=== PATIENT | male | born 1955 | race Caucasian/White ===

== ENCOUNTER 2016-09-18 11:42 | Emergency (ER) | payer OTHER ==
[~2016-09-18 11:42] MED LIST: HUMULIN 70100 UNIT/1 SQ; PEPCID AC20 MG PO; PRINIVIL10 MG PO; REGLAN10 MG PO
[2016-09-18 12:19] LABS: BASOPHIL 1.3 % (0-2); EOSINOPHIL 5.3 % (0-5); HCT 46.8 % (42.0-52.0); HGB 16.3 g/dl (13.2-18.0); LYMPHOCYTE 19.6 % (15-48); MCH 29.1 pg (25.0-31.0); MCHC 34.8 g/dL (32.0-36.0); MCV 83.4 fL (78.0-100.0); MONOCYTE 10.4 % (0-12); NEUTROPHIL 63.4 % (41-80); PLT 248 K/uL (150-400); RBC 5.61 M/uL (4.70-6.00); RDW 12.9 % (11.5-14.0); WBC 9.2 K/uL (4.0-10.5)
[2016-09-18 12:28] LABS: INR 0.92 (0.9-1.2); PTT 26.6 SECONDS (23.2-31.4)
[2016-09-18 12:35] LABS: ALBUMIN 4.2 g/dL (3.5-5.0); BILIRUBIN - TOTAL 0.3 mg/dL (0.1-1.0); GLOBULIN (CALCULATION) 2.8 g/dL (2.2-4.2); POTASSIUM 4.5 mmol/L (3.5-5.1)
[2016-09-18 13:43] LABS: BILIRUBIN NEGATIVE (NEGATIVE); BLOOD TRACE-LYSED Ery/uL (NEGATIVE); CLARITY CLEAR (CLEAR); COLOR STRAW (YELLOW); GLUCOSE (U) 3+ mg/dL (NORMAL); KETONE (U) 3+ (LARGE) mg/dL (NEGATIVE); LEUKOCYTES NEGATIVE Leu/uL (NEGATIVE); NITRITE NEGATIVE (NEGATIVE); PROTEIN TRACE (LOW) mg/dL (NEGATIVE); UROBILINOGEN 0.2 mg/dL (0.2-1.0)
== END 2016-09-18 14:25 | disposition other institution (70) ==
LOC: FER 11:42
PROVIDERS: Emergency Medicine
DX: G45.8 Other transient cerebral ischemic attacks and related syndromes (principal); R29.700 NIHSS score 0; E11.9 Type 2 diabetes mellitus without complications; F17.210 Nicotine dependence, cigarettes, uncomplicated
CPT/HCPCS: 36415; 70450; 71010; 80053; 81001; 82550; 85025; 85610; 85730; 93005

== ENCOUNTER 2016-09-25 15:09 | Inpatient (IN) | payer OTHER ==
--- NOTE | 2016-09-25 16:16 | NUR ---
ADMITTED FROM [facility]IA [facility] TO [facility] ROOM 5. TRANSFERRED WITH ASSIST OF 3 TO BED. ORIENTED TO ROOM AND CALL LIGHT. INSTRUCTED TO BE UP WITH ASSISTANCE ONLY. AT BEDSIDE. IID TO LEFT A/C INTACT
[2016-09-26 06:11] LABS: HCT 44.3 % (42.0-52.0); HGB 15.2 g/dl (13.2-18.0); MCH 29.2 pg (25.0-31.0); MCHC 34.3 g/dL (32.0-36.0); MPV 10.3 fL (6.0-9.5); RBC 5.21 M/uL (4.70-6.00); RDW 12.9 % (11.5-14.0)
[2016-09-26 06:32] LABS: POTASSIUM 4.3 mmol/L (3.5-5.1)
--- NOTE | 2016-09-28 16:53 | NUR ---
MET [facility] PT. SPOUSE FOR [facility]. PT. DID NOT WISH TO ATTEND. ADVISED THAT PT. WILL CONTINUE TO REMAIN IN THERAPY LONG INSURANCE APPROVES. PT. WILL NEED A MALENA-WALKER AND WANTS OUTPT. THERAPY.
--- NOTE | 2016-10-10 05:56 | NUR ---
5 AM PT CALLED OUT TO HAVE BLOOD SUGAR CHECKED STATES HE IS HAVING STROBE LIGHTS IN HIS FIELD OF VISION WHICH OCCURS WHEN BS LOW. RESULTS 86MG/DL. SNACK OF MANAV CRACKER WITH PB GIVEN WITH COFFEE. RECHECK AT 0545 READING OF 186. NO SIGNS OF DISTRESS. NO ISSUE AT CURRENT WITH VISION DISTRUBANCE.
--- NOTE | 2016-10-11 13:10 | NUR ---
PT. D/C TO [facility] PER REQUEST OF PT. THIS IS FOR CONTINUED AND MORE INTENSE REHAB. PER ALBERT WITH [facility] PT. INSURANCE HAS APPROVED HIS STAY. D/C NOTICE AND QUESTIONNAIRE GIVEN.
--- NOTE | 2016-10-11 13:59 | NUR ---
61 YEAR OLD DC TO [facility], A/O X 3, WENT TO FACILITY VIA CAR WITH SPOUSE, CALLED REPORT
== END 2016-10-11 14:01 | DRG 57 ==
LOC: FSNU 15:09
PROVIDERS: ADMIT Internal Medicine Adolescent Medicine
DX: I69.354 Hemiplegia and hemiparesis following cerebral infarction affecting left non-dominant side (principal); I10 Essential (primary) hypertension; I69.392 Facial weakness following cerebral infarction; E11.9 Type 2 diabetes mellitus without complications; F17.290 Nicotine dependence, other tobacco product, uncomplicated; I69.398 Other sequelae of cerebral infarction; M79.1 Myalgia; T50.995A Adverse effect of other drugs, medicaments and biological substances, initial encounter; Y92.239 Unspecified place in hospital as the place of occurrence of the external cause; Z79.4 Long term (current) use of insulin; Z79.82 Long term (current) use of aspirin; Z90.49 Acquired absence of other specified parts of digestive tract; Z82.49 Family history of ischemic heart disease and other diseases of the circulatory system; Z83.3 Family history of diabetes mellitus
CPT/HCPCS: 36415; 80048; 82550; 82962; 83874; 92523; 92526; 97110; 97116; 97162; 97167; 97530; 97530-GP; 97532; 97535; J1815

== ENCOUNTER 2016-12-27 21:53 | Emergency (ER) | payer OTHER ==
[2016-12-27 22:21] LABS: BASOPHIL 1.1 % (0-2); EOSINOPHIL 2.1 % (0-5); HGB 13.6 g/dl (13.2-18.0); LYMPHOCYTE 34.6 % (15-48); MCHC 35.8 g/dL (32.0-36.0); MCV 83.7 fL (78.0-100.0); MPV 10.3 fL (6.0-9.5); NEUTROPHIL 52.2 % (41-80); PLT 231 K/uL (150-400); RBC 4.54 M/uL (4.70-6.00); RDW 12.6 % (11.5-14.0); WBC 5.7 K/uL (4.0-10.5)
[2016-12-27 22:32] LABS: INR 0.97 (0.9-1.2); PROTHROMBIN TIME 12.5 SECONDS (11.7-14.0); PTT 28.1 SECONDS (23.2-31.4)
[2016-12-27 22:33] LABS: D-DIMER 0.31 ug/mLFEU (0.00-0.41)
[2016-12-27 22:38] LABS: ALBUMIN 4.2 g/dL (3.5-5.0); BILIRUBIN - TOTAL 0.3 mg/dL (0.1-1.0); CREATININE 1.1 mg/dL (0.7-1.2); GLOBULIN (CALCULATION) 2.3 g/dL (2.2-4.2); MAGNESIUM 2.05 mg/dL (1.40-2.10); POTASSIUM 4.2 mmol/L (3.5-5.1); TOTAL PROTEIN 6.5 g/dL (6.4-8.3)
[2016-12-27 22:42] LABS: CKMB 3.29 ng/mL (0.97-4.94); MYOGLOBIN 45 ng/mL (26-65); PRO-BNP 53 pg/mL (0-125); TROPONIN T < 0.010 ng/mL
== END 2016-12-28 02:22 | disposition home or self-care (01) ==
LOC: FER 21:53
PROVIDERS: Emergency Medicine Emergency Medical Services
DX: R07.89 Other chest pain (principal); R06.02 Shortness of breath; R10.9 Unspecified abdominal pain; I10 Essential (primary) hypertension; E11.9 Type 2 diabetes mellitus without complications; Z79.82 Long term (current) use of aspirin; Z79.4 Long term (current) use of insulin; Z79.84 Long term (current) use of oral hypoglycemic drugs; Z79.01 Long term (current) use of anticoagulants; Z82.49 Family history of ischemic heart disease and other diseases of the circulatory system; Z83.3 Family history of diabetes mellitus; Z87.19 Personal history of other diseases of the digestive system; Z86.73 Personal history of transient ischemic attack (TIA), and cerebral infarction without residual deficits; Z90.49 Acquired absence of other specified parts of digestive tract
CPT/HCPCS: 36415; 71010; 71275; 80053; 82150; 82550; 82553; 83690; 83735; 83874; 83880; 84484; 85025; 85379; 85610; 85730; 87040; 93005; 94640; J2930; Q9967

== ENCOUNTER 2021-01-21 07:05 | Emergency (ER) | payer OTHER ==
[~2021-01-21 07:05] MED LIST changes: +ASPIRIN EC81 MG PO; +BASAGLAR K100 UNIT/1 SC; +BENAZEPRIL HCL5 MG PO; +HUMULIN R100 UNIT/1 SC; +IBUPROFEN800 MG PO; +ZOFRAN4 MG PO
[2021-01-21 08:20] LABS: ALBUMIN 3.7 g/dL (3.4-5.0); BILIRUBIN - TOTAL 0.4 mg/dL (0.2-1.0); BUN/CREAT RATIO (CALC) 19.8 RATIO; CREATININE 1.06 mg/dL (0.67-1.17); GLOBULIN (CALCULATION) 3.1 g/dL; POTASSIUM 4.6 mmol/L (3.5-5.1); TOTAL PROTEIN 6.8 g/dL (6.4-8.2)
[2021-01-21 08:21] LABS: BASOPHIL 0.9 % (0-2); EOSINOPHIL 2.3 % (0-7); LYMPHOCYTE 29.9 % (15-48); MCHC 34.2 g/dL (32.0-36.0); MCV 87.8 fL (78.0-100.0); MONOCYTE 8.2 % (0-12); MPV 10.9 fL (6.0-9.5); NEUTROPHIL 58.4 % (41-80); NRBC 0; PLT 236 K/uL (150-400); RBC 4.33 M/uL (4.70-6.00); WBC 6.5 K/uL (4.0-10.5)
[2021-01-21 08:25] LABS: INR 0.97 (0.9-1.2); PROTHROMBIN TIME 12.2 SECONDS (11.4-13.6); PTT 29.2 SECONDS (22.2-34.7)
== END 2021-01-21 10:32 | disposition home or self-care (01) ==
LOC: FER 07:05
PROVIDERS: Emergency Medicine
DX: R07.89 Other chest pain (principal); I10 Essential (primary) hypertension; E11.9 Type 2 diabetes mellitus without complications; Z86.73 Personal history of transient ischemic attack (TIA), and cerebral infarction without residual deficits
CPT/HCPCS: 36415; 71045; 80053; 84484; 85025; 85379; 85610; 85730; 93005